=== PATIENT | male | born 1940 | race Caucasian/White ===

== ENCOUNTER 2021-01-12 12:26 | Emergency (ER) | payer MEDICARE ==
[2021-01-12 13:44] LABS: HEMOGLOBIN 15.8 gm/dl (14.0-17.5); RED BLOOD COUNT 4.55 M/UL (4.20-5.50); WHITE BLOOD COUNT 8.7 K/UL (4.5-11.0)
[2021-01-12 14:07] LABS: BUN/CREATININE RATIO 18 (0-10)
[2021-01-12] MEDS ORDERED: ZOFRAN ODT 4 MG4 MG SL (14:28)
== END 2021-01-12 14:46 | disposition home or self-care (01) ==
LOC: ER1 12:26
PROVIDERS: Physician Assistant
DX: N13.2 Hydronephrosis with renal and ureteral calculous obstruction (principal); K80.20 Calculus of gallbladder without cholecystitis without obstruction; Z91.013 Allergy to seafood
CPT/HCPCS: 80053; 81001; 85025; 96374; 96375; 99284; J1885; J2405